=== PATIENT | female | born 1990 | race Caucasian/White ===

== ENCOUNTER 2020-03-27 23:23 | Inpatient (IN) ==
[2020-03-28] MEDS ORDERED: OXYTOCIN 30 UNITS/500 ML BAG IV PRN ×3 (00:08→06:33)
[2020-03-28 00:30] LABS: Hematocrit (blood only) 36.2 % (37-47); Hemoglobin 12.7 g/dL (12.0-16.0); Mean Corpuscular Hemoglobin 33.6 pg (25-34); Mean Corpuscular Volume 95.8 fL (80-100); Mean Platelet Volume 11.2 fL (7.4-10.4); Platelet Count 249 K/uL (130-400); RDW Coefficient of Variation 12.8 % (11.5-14.5); RDW Standard Deviation 44.3 fL (36.4-46.3); Red Blood Count 3.78 M/uL (4.2-5.4)
[2020-03-28 00:51] LABS: Mean Corpuscular Hgb Conc 35.1 g/dL (32-36)
[2020-03-28] MEDS: LACTATED RINGER'S 1,000 ML IV PRN ×2 (01:25→02:28)
[2020-03-28] MEDS ORDERED: ePHEDrine sulfate 50 MG/ML AMP ONE (01:37)
[2020-03-28] MEDS ORDERED: BUPIVACAINE 0.25% 30 ML VIAL ONE (01:37)
[2020-03-28] MEDS ORDERED: fentaNYL citrate 100 MCG/2 ML VIAL ONE (01:38)
[2020-03-28] MEDS ORDERED: fentaNYL 2MCG/ML ROPIV 1.25MG/ML 100 ML BAG EPI ONE (01:39)
[2020-03-28] MEDS ORDERED: fentaNYL 2MCG/ML ROPIV 1.25MG/ML 100 ML BAG EPI PRN (02:05)
[2020-03-28] MEDS ORDERED: PROMETHAZINE HCL 6.25 MG in SODIUM CHLORIDE 0.9% 50 ML IV PRN (02:05)
[2020-03-28] MEDS ORDERED: ONDANSETRON INJ 2 MG/ML 2 ML VIAL IV PRN (02:05)
[2020-03-28] MEDS ORDERED: NALOXONE HCL 1 MG in SODIUM CHLORIDE 0.9% 1000ML 1,000 ML IV PRN (02:05)
[2020-03-28] MEDS ORDERED: DiphenhydrAMINE HCL 50 MG/ML VIAL IV PRN (02:05)
[2020-03-28] MEDS ORDERED: ePHEDrine sulfate 50 MG/ML AMP IV PRN (02:05)
[2020-03-28] MEDS ORDERED: NALOXONE HCL 0.4 MG/1 ML VIAL/CARP IV PRN (02:05)
--- NOTE | 2020-03-28 02:05 | Anesthesiology Consultation ---
Date of Service March 28, 2020 Assessment & Plan Chart Review Chart Review: Patient NOT seen in Pre Admission Testing and Acceptable Risk for Labor Epidural Consults Requested none ASA ASA2 Proposed Anesthesia Anesthesia Type: Labor Epidural Risk / Benefits Reviewed With: PT / POA / Parent / Guardian, Accepts Plan and Informed Consent Obtained History Height/Weight Weight: 73.457 kg Allergies Allergy/AdvReac Type Severity Reaction Status Date / Time Cephalosporins Allergy Unknown RXN TO Verified 03/27/20 23:34 CEFACLOR Sulfa (Sulfonamide Allergy Unknown Unknown Verified 03/27/20 23:34 Antibiotics) Medications Home Medications Medication Instructions Recorded Confirmed Last Taken 2 tab PO DAILY 03/27/20 03/27/20 03/26/20 20:00 Active Medications Generic Name Dose Route Start Last Admin Trade Name Freq PRN Reason Stop Dose Admin Lactated Ringer's 1,000 mls @ 125 mls/hr 03/28/20 00:08 03/28/20 01:25 Lr IV 03/30/20 00:07 999 mls/hr .Q8H PRN Administration L&D Protocol Protocol NPO Date Last Intake of Fluids: 03/28/20 Time Last Intake of Fluids: 02:00 Date Last Intake of Solids: 03/27/20 Time Last Intake of Solids: 19:30 Past Medical History Medical History Asthma DANNY III (cervical intraepithelial neoplasia grade III) with severe dysplasia GREGORY (generalized anxiety disorder) HGSIL (high grade squamous intraepithelial lesion) on Pap smear of cervix Varicella Exercise / Class Metabolic Activity II 4-5 Yardwork/Stairs/Walk up hill Past Surgical History Surgical History H/O LEEP 2019 Hx of tonsillectomy Past Anesthesia History No Hx of Anesthesia Complications and No Family Hx of Anesthesia Complications History of PONV No Hx of PONV and No Hx of Motion Sickness Social History Smoking Status: Never smoker Hx Alcohol Use: No Hx Substance Use: No substance use type: does not use Physical Exam Vital Signs Last Vital Signs Temp 36.9 C 03/27/20 23:35 Pulse 80 03/28/20 02:27 Resp 18 03/27/20 23:35 BP 101/57 L 03/28/20 02:23 Pulse Ox 95 03/28/20 02:27 ENMT Mouth: no dentition abnormality Thyromental Distance: > or= 3.5 Finger Breadths Mallampati Class: II Neck normal visual inspection Respiratory normal respiratory effort Auscultation: lungs clear to auscultation bilaterally Cardiovascular Rate/Rhythm: regular rate and regular rhythm Psychiatric Orientation: alert Testing Laboratory Results 03/28/20 00:22
[2020-03-28] MEDS ORDERED: SUPERCREAM 0.870% 15 GM JAR EXT PRN (06:33)
[2020-03-28] MEDS ORDERED: BENZOCAINE 20% AER SPR 82.5 GM CAN EXT PRN (06:33)
[2020-03-28] MEDS ORDERED: ACETAMINOPHEN W/CODEINE #3 1 TAB PO PRN (06:33)
[2020-03-28] MEDS ORDERED: HYDROCORTISONE ACETATE 25 MG SUPP PR PRN (06:33)
[2020-03-28] MEDS ORDERED: DIPHTHERIA/TETANUS/PERTUSSIS 0.5 ML SYR/VIAL IM ONE (06:33)
[2020-03-28] MEDS ORDERED: ACETAMINOPHEN 325 MG TAB PO PRN (06:33)
[2020-03-28] MEDS ORDERED: OXYCODONE/ACETAMINOPHEN 5mg/325mg TAB PO PRN (06:33)
--- NOTE | 2020-03-28 07:09 | Delivery Summary ---
DATE OF OPERATION: 03/28/2020 DELIVERY NOTE She is a 1, para 1. Blood type is A negative. She was admitted in spontaneous labor at 38 weeks 2 days. She was sent home, came back. She labored spontaneously when her membranes were about 6-7. Her membranes ruptured during a vag exam. Shortly after that, she requested and received epidural anesthesia. After she got her epidural, she slept for about an hour and a half, then woke up. We let her labor for another half hour and then started to push. In under an hour, she pushed out a live female infant via direct occiput anterior position over an intact perineum. was suctioned through the mouth and the nose. Shoulders were delivered without difficulty. Cord was allowed to pulse for 1 minute, then clamped and cut. Cord blood was taken. With IV Pitocin running, the placenta was removed intact. Inspection of the perineum revealed a superficial perineal laceration at 7 o'clock and this was repaired with a running Vicryl and then also a vaginal laceration that extended through the labia minora on the left side and this was also repaired with a running Vicryl. Following this, hemostasis was good. Vag exam revealed no blood clots. Uterus was well contracted and slightly retroverted. A catheter was used to empty the bladder. Estimated blood loss was 200 mL. Apgars deferred to the nurses. I attest to the content of the Intraoperative Record and any orders documented therein. Any exception s are noted below.
--- NOTE | 2020-03-28 07:20 | Anesthesia Procedure Note ---
Date of Service March 28, 2020 Anesthesia Post Epidural Note Vital Signs Vital Signs: Temp Pulse Resp BP Pulse Ox 36.9 C 76 18 108/60 95 03/28/20 04:04 03/28/20 07:12 03/28/20 04:04 03/28/20 07:12 03/28/20 06:27 Pain Intensity Lower Back: Pain Intensity: 5 Notes Mental Status: alert / awake / arousable and participated in evaluation Nausea / Vomiting: adequately controlled Pain: adequately controlled Airway Patency, RR, SpO2: stable & adequate BP & HR: stable & adequate Hydration State: stable & adequate Neuraxial Anesthesia: was administered and sensory block is resolving Anesthetic Complications: no major complications apparent and Pt Satisfied with anesthetic care Epidural: Removed without complications and With tip intact Notes: Epidural site clean, dry and intact. No signs of edema, erythema or bruising at insertion site. Pt instructed to request anesthesia if she has residual lower extremity numbness or if she develops lower extremity pain or weakness, back pain or headache.
[2020-03-28] MEDS: DOCUSATE SODIUM 100 MG CAP PO SCH ×2 (08:52→20:33)
[2020-03-28] MEDS: PRENATAL VITAMIN 1 TAB PO SCH (08:52)
[2020-03-28] MEDS: IBUPROFEN 600 MG TAB PO PRN ×3 (09:38→20:34)
[2020-03-29] MEDS: IBUPROFEN 600 MG TAB PO PRN ×5 (00:39→21:20)
[2020-03-29 06:00] LABS: Hematocrit (blood only) 33.8 % (37-47); Hemoglobin 11.2 g/dL (12.0-16.0); Mean Corpuscular Hemoglobin 32.5 pg (25-34); Mean Corpuscular Hgb Conc 33.1 g/dL (32-36); Mean Platelet Volume 11.4 fL (7.4-10.4); Platelet Count 238 K/uL (130-400); RDW Coefficient of Variation 13.3 % (11.5-14.5); RDW Standard Deviation 47.3 fL (36.4-46.3); Red Blood Count 3.45 M/uL (4.2-5.4); White Blood Count 14.87 K/uL (4.8-10.8)
[2020-03-29] MEDS: DOCUSATE SODIUM 100 MG CAP PO SCH ×2 (08:00→20:45)
[2020-03-29] MEDS: PRENATAL VITAMIN 1 TAB PO SCH (08:00)
--- NOTE | 2020-03-29 08:42 | Obstetrical Progress Note ---
Date of Service March 29, 2020 Assessment & Plan Admission and Anticipated Discharge Date Admission Date: March 28, 2020 Subjective Patient is seen and examined. She feels well, no complaints. Ambulating without dizziness Voiding without difficulty Tolerating regular diet with out N&V Bleeding is minimal No fever/ chills/ CP/ SOB/ N&V/ Leg pain Breast feeding without problems Vital Signs Temp Pulse Pulse Resp BP BP Pulse Ox 03/29/20 05:45 36.5 C 68 16 100/62 03/29/20 00:15 36.9 C 71 18 104/66 03/28/20 20:25 36.8 C 75 18 103/69 03/28/20 14:30 36.9 C 80 18 109/70 97 03/28/20 11:33 37.1 C 20 03/28/20 11:32 78 103/54 L Lab Results 03/28/20 03/29/20 Range/Units 00:22 05:28 WBC 16.60 H 14.87 H (4.8-10.8) K/uL RBC 3.78 L 3.45 L (4.2-5.4) M/uL Hgb 12.7 11.2 L (12.0-16.0) g/dL Hct 36.2 L 33.8 L (37-47) % MCV 95.8 98.0 (80-100) fL MCH 33.6 32.5 (25-34) pg MCHC 35.1 33.1 (32-36) g/dL RDW Std Deviation 44.3 47.3 H (36.4-46.3) fL RDW Coeff of Eben 12.8 13.3 (11.5-14.5) % Plt Count 249 238 (130-400) K/uL MPV 11.2 H 11.4 H (7.4-10.4) fL PE: General: Alert, orientedx3, NAD Abd: soft, NT, fundus firm, below Umbilicus Perineum intact, Lochia rubra minimal Ext; NT, no edema AP: 30 yo s/p , ppd# 1 VSS Afebrile doing well Continue routine care All questions were answered D/C home tomorrow Results & Data ([facility]) Vital Signs (Past 12 Hours) Vital Signs Temp Pulse Resp BP 03/29/20 05:45 36.5 C 68 16 100/62 03/29/20 00:15 36.9 C 71 18 104/66
[2020-03-29] MEDS ORDERED: bisacodyL 5 MG TABEC PO SCH (20:00)
[2020-03-30] MEDS: IBUPROFEN 600 MG TAB PO PRN ×2 (02:39→08:10)
[2020-03-30] MEDS ORDERED: bisacodyL 10 MG SUPP PR PRN (06:00)
[2020-03-30 06:53] LABS: Hematocrit (blood only) 34.9 % (37-47); Hemoglobin 11.8 g/dL (12.0-16.0)
[2020-03-30] MEDS: PRENATAL VITAMIN 1 TAB PO SCH (08:09)
[2020-03-30] MEDS: DOCUSATE SODIUM 100 MG CAP PO SCH (08:09)
--- NOTE | 2020-03-30 11:44 | Obstetrical Progress Note ---
Date of Service March 30, 2020 Assessment & Plan Admission and Anticipated Discharge Date Admission Date: March 28, 2020 Physical Exam Physical Exam: abdomen soft and non tender no calf tenderness ambulating well vaginal bleeding scant hgb 11.8 Results & Data ([facility]) Vital Signs (Past 12 Hours) Vital Signs Temp Pulse Resp BP Pulse Ox 03/30/20 08:15 36.7 C 69 16 119/74 97 03/30/20 01:30 36.6 C 69 16 114/74 97
== END 2020-03-30 14:38 | disposition home or self-care (01) | DRG 807 ==
LOC: OPB 23:23 → 4S1 23:24 → 4S2 03-28 14:30